=== PATIENT | male | born 1985 | race Caucasian/White ===

== ENCOUNTER 2018-01-18 19:13 | Emergency (ER) | payer SELFPAY ==
[~2018-01-18] VITALS: Ht 185.4 cm; Wt 72.6 kg
[2018-01-18] MEDS ORDERED: SODIUM CHLORIDE 0.9% 1000ML 1,000 ML IV STA (19:25)
[2018-01-18 19:57] LABS: BASOPHILS % 0.5 % (0.0-1.0); EOSINOPHILS # (AUTO) 0.1 (0.0-0.4); EOSINOPHILS % 1.6 % (0.0-6.0); HEMATOCRIT 51.2 % (38.2-49.6); HEMOGLOBIN 17.5 g/dL (14.0-18.0); LYMPHOCYTES % 27.2 % (18.0-39.1); MEAN CORPUSCULAR HGB CONC 34.2 g/dL (31-35); MEAN CORPUSCULAR VOLUME 90.6 fL (81-99); MONOCYTES # (AUTO) 0.5 (0.2-0.8); MONOCYTES % 6.4 % (4.4-11.3); NEUTROPHILS # (AUTO) 4.7 (2.1-6.9); PLATELET COUNT 259 x10e3/uL (140-360); RED BLOOD COUNT 5.65 x10e6/uL (4.3-5.7); RED CELL DISTRIBUTION WIDTH 14.1 % (11.7-14.4)
--- NOTE | 2018-01-18 20:02 | Diagnostic Imaging Report ---
Exam: Head CT without contrast History: Seizure Comparison studies: None Technique: Axial images were obtained from the skull base to the vertex. Coronal and sagittal images reconstructed from the axial data. Intravenous contrast: None Findings: Scalp: No abnormalities. Bones: No fractures, blastic or lytic lesions. Brain sulci: Appropriate for age. Ventricles: There is asymmetry of the lateral ventricles with the right being slightly larger than the left. There is mild deviation of the septum to the left of midline. Findings raise the possibility for small congenital arachnoid cyst in the right lateral ventricle. No hydrocephalus. Extra-axial spaces: No masses, no fluid collection. Parenchyma: No mass, acute hemorrhage or acute or chronic cortical vascular insults. No abnormal densities. Sellar/suprasellar region: No abnormalities. Craniocervical junction: Patent foramen magnum. No Chiari one malformation. IMPRESSION: 1. No acute intracranial abnormalities. 2. Mild nonspecific lateral ventricular asymmetry with possible small right lateral ventricle (intraventricular) arachnoid cyst. No acute hydrocephalus. Signed by: Dr. Ernie Adrian M.D. on 01/18/2018 7:58 PM
[2018-01-18 20:16] LABS: ALANINE AMINOTRANSFERASE 26 IU/L (0-55); ALBUMIN 4.4 g/dL (3.5-5.0); ALBUMIN/GLOBULIN RATIO 1.4 (0.8-2.0); ALKALINE PHOSPHATASE 97 IU/L (40-150); ANION GAP 20.4 mmol/L (8-16); BLOOD UREA NITROGEN < 5 mg/dL (7-26); CALCIUM 10.1 mg/dL (8.4-10.2); CARBON DIOXIDE 22 mmol/L (22-29); CHLORIDE 100 mmol/L (98-107); CREATINE KINASE 116 IU/L (30-200); CREATININE, SERUM 0.75 mg/dL (0.72-1.25); EST GLOMERULAR FILTRATION RATE > 60 ML/MIN (60-); GLUCOSE 83 mg/dL (74-118); POTASSIUM 4.4 mmol/L (3.5-5.1); SODIUM 138 mmol/L (136-145)
[2018-01-18 20:18] LABS: BUN/CREATININE RATIO 7 (6-25)
[2018-01-18 20:22] LABS: CLARITY,URINE CLEAR (CLEAR); COLOR,URINE YELLOW (YELLOW); KETONES,URINE NEGATIVE (NEGATIVE); LEUKOCYTE ESTERASE ,URINE NEGATIVE (NEGATIVE); NITRITE,URINE NEGATIVE (NEGATIVE); PROTEIN,URINE DIPSTICK NEGATIVE (NEGATIVE)
[2018-01-18 20:23] LABS: AMPHETAMINES SCREEN,URINE NEGATIVE (NEGATIVE); BENZODIAZEPINES SCREEN,URINE POSITIVE (NEGATIVE); BILIRUBIN,URINE NEGATIVE (NEGATIVE); PHENCYCLIDINE SCREEN,URINE NEGATIVE (NEGATIVE); URINE UROBILINOGEN 0.2 mg/dL (0.2 - 1)
[2018-01-18] MEDS ORDERED: LEVETIRACETAM 500MG/5ML VIAL 500 MG in SODIUM CHLORIDE 0.9% 100 ML 100 ML IV SCH (22:00)
[2018-01-18 22:18] VITALS: BP 117/88
== END 2018-01-18 22:57 | disposition home or self-care (01) ==
LOC: ER 19:21
DX: G40.309 Generalized idiopathic epilepsy and epileptic syndromes, not intractable, without status epilepticus (principal); F12.90 Cannabis use, unspecified, uncomplicated
CPT/HCPCS: 36415; 70450; 80053; 80307; 81001; 82550; 82553; 82948; 84484; 85025; 87086; 93005; 99284; J7030